=== PATIENT | female | born 1990 | race Native Hawaiian/Other Pacific Islander ===

== ENCOUNTER 2020-09-25 17:15 | Emergency (ER) | payer OTHER ==
[~2020-09-25] VITALS: Ht 149.9 cm; Wt 81.6 kg
[2020-09-25 18:24] LABS: PLATELET COUNT 343 K/uL (152-353)
[2020-09-25 18:35] LABS: POTASSIUM 3.6 mmol/L (3.6-5.2)
[2020-09-25 23:54] VITALS: BP 139/76; TEMP 98.5
== END 2020-09-25 23:54 | disposition still patient (30) ==
LOC: ED 17:15
PROVIDERS: Family Medicine
DX: R10.31 Right lower quadrant pain (principal); K52.89 Other specified noninfective gastroenteritis and colitis
CPT/HCPCS: 36415; 80053; 81000; 81025; 85027; 96360; 96361; 96375; 96376; 99284; J1170; J1885; J2405; Q9963

== ENCOUNTER 2021-05-16 14:11 | Emergency (ER) | payer OTHER ==
[~2021-05-16] VITALS: Ht 149.9 cm; Wt 81.6 kg
[2021-05-16 14:24] VITALS: TEMP 97.5
[2021-05-16 15:16] LABS: PLATELET COUNT 371 K/uL (152-353)
[2021-05-16 15:28] LABS: POTASSIUM 4.1 mmol/L (3.6-5.2)
[2021-05-16 16:37] VITALS: BP 152/84
== END 2021-05-16 16:38 | disposition home or self-care (01) ==
LOC: ED 14:11
PROVIDERS: Family Medicine
DX: M62.838 Other muscle spasm (principal); M79.18 Myalgia, other site; F41.8 Other specified anxiety disorders
CPT/HCPCS: 80053; 85027; 96372; 99283; J1885; J2060

== ENCOUNTER 2021-11-09 18:18 | Emergency (ER) | payer OTHER ==
[~2021-11-09] VITALS: Ht 149.9 cm; Wt 81.6 kg
[2021-11-09 19:10] VITALS: BP 145/81; TEMP 97.5
== END 2021-11-09 19:15 | disposition home or self-care (01) ==
LOC: ED 18:18
DX: S61.230A Puncture wound without foreign body of right index finger without damage to nail, initial encounter (principal); W54.0XXA Bitten by dog, initial encounter; Y92.89 Other specified places as the place of occurrence of the external cause
CPT/HCPCS: 90471; 90715; 99283

== ENCOUNTER 2023-02-07 14:56 | Emergency (ER) | payer OTHER ==
[~2023-02-07] VITALS: Ht 149.9 cm; Wt 95.3 kg
[2023-02-07 15:00] VITALS: BP 155/89; TEMP 98.8
[2023-02-07 15:31] LABS: PLATELET COUNT 394 K/uL (152-353)
[2023-02-07 15:43] LABS: POTASSIUM 3.4 mmol/L (3.6-5.2)
== END 2023-02-07 19:25 | disposition home or self-care (01) ==
LOC: ED 14:56
PROVIDERS: Emergency Medicine
DX: R10.31 Right lower quadrant pain (principal); D35.02 Benign neoplasm of left adrenal gland; R11.2 Nausea with vomiting, unspecified
CPT/HCPCS: 80053; 81002; 81025; 82150; 83690; 85027; 96361; 96374; 96375; 99284; J1885; J2405; Q9963